=== PATIENT | female | born 1995 | race Hispanic/Latino ===

== ENCOUNTER 2023-09-15 11:51 | Emergency (ER) | payer SELFPAY ==
[2023-09-15 12:33] LABS: BASOPHILS ABSOLUTE AUTO 0.01 K/uL (0.00-0.20); BASOPHILS PERCENT AUTO 0.3 % (0.0-1.0); EOSINOPHILS ABSOLUTE AUTO 0.02 K/uL (0.00-0.45); EOSINOPHILS PERCENT AUTO 0.5 % (0.0-6.0); HEMOGLOBIN 13.7 g/dL (12.0-16.0); IMMATURE GRAN ABSOLUTE AUTO 0.01 K/uL (0.00-0.05); IMMATURE GRAN PERCENT AUTO 0.3 % (0.0-0.4); LYMPHOCYTES ABSOLUTE AUTO 1.15 K/uL (1.00-4.80); LYMPHOCYTES PERCENT AUTO 31.3 % (24.0-44.0); MEAN CORPUSCULAR HEMOGLOBIN 30.9 pg (28.0-32.0); MEAN CORPUSCULAR HGB CONC 36.1 g/dL (32.0-36.0); MEAN CORPUSCULAR VOLUME 85.6 fL (83.0-99.0); MEAN PLATELET VOLUME 9.9 fL (9.4-12.3); MONOCYTES ABSOLUTE AUTO 0.26 K/uL (0.00-0.80); MONOCYTES PERCENT AUTO 7.1 % (0.0-8.0); NEUTROPHILS ABSOLUTE AUTO 2.23 K/uL (1.80-7.70); NEUTROPHILS PERCENT AUTO 60.5 % (41.0-71.0); PLATELET COUNT,PLT 300 K/uL (150-400); RED BLOOD CELL COUNT 4.44 M/uL (4.10-5.30); WHITE BLOOD CELL COUNT,WBC 3.68 K/uL (3.9-11.3)
[2023-09-15 12:47] LABS: INR 0.96 (0.86-1.11)
[2023-09-15 13:21] LABS: APPEARANCE,URINE CLEAR; BILIRUBIN,URINE NEGATIVE (NEGATIVE); COLOR,URINE YELLOW; GLUCOSE,URINE NEGATIVE (NEGATIVE); KETONES,URINE NEGATIVE (NEGATIVE); LEUKOCYTE ESTERASE,URINE NEGATIVE (NEGATIVE); NITRITE,URINE NEGATIVE (NEGATIVE); OCCULT BLOOD,URINE NEGATIVE (NEGATIVE); PH,URINE 5.5 (5.0-8.0); PROTEIN,URINE NEGATIVE (NEGATIVE); UROBILINOGEN,URINE 0.2 EU/dL (<2.0)
[2023-09-15 13:40] LABS: BILIRUBIN TOTAL 0.5 mg/dL (0.2-1.0); CALCIUM 9.2 mg/dL (8.5-10.1); CARBON DIOXIDE,CO2 21.4 mmol/L (21.0-32.0); CREATININE 0.6 mg/dL (0.6-1.0); EST CRCL DRUG DOSING (CG) 103.28 mL/min; PROTEIN TOTAL,TP 8.2 g/dL (6.4-8.2)
== END 2023-09-15 16:36 | disposition home or self-care (01) ==
LOC: MW.ED 11:51
DX: O44.51 Low lying placenta with hemorrhage, first trimester (principal); O21.0 Mild hyperemesis gravidarum; O36.0111 Maternal care for anti-D [Rh] antibodies, first trimester, fetus 1; Z3A.13 13 weeks gestation of pregnancy
CPT/HCPCS: 36415; 36430; 76817; 76817-26; 80053; 81003; 84702; 85025; 85610; 86850; 86900; 86901; 96372; 99283; 99284; J2790

== ENCOUNTER 2023-10-05 16:09 | Emergency (ER) | payer MEDICAID, OTHER ==
[2023-10-05 17:46] LABS: CORONAVIRUS COVID-19 NAA NEGATIVE (NEGATIVE); INFLUENZA A NAA NEGATIVE (NEGATIVE); INFLUENZA B NAA NEGATIVE (NEGATIVE); RESPIRATORY SYNCYTIAL VIR NAA NEGATIVE (NEGATIVE)
[2023-10-05 17:57] LABS: APPEARANCE,URINE CLEAR; BILIRUBIN,URINE NEGATIVE (NEGATIVE); COLOR,URINE YELLOW; GLUCOSE,URINE NEGATIVE (NEGATIVE); KETONES,URINE NEGATIVE (NEGATIVE); LEUKOCYTE ESTERASE,URINE NEGATIVE (NEGATIVE); NITRITE,URINE NEGATIVE (NEGATIVE); OCCULT BLOOD,URINE TRACE-INTACT (NEGATIVE); PROTEIN,URINE NEGATIVE (NEGATIVE); UROBILINOGEN,URINE 0.2 EU/dL (<2.0)
[2023-10-05 18:11] LABS: BACTERIA,URINE FEW (NEGATIVE); EPITHELIAL CELLS,URINE RARE (NONE-FEW); RBC,URINE 0-1 (0-2/HPF); WBC,URINE 0-2 (0-5/HPF)
[2023-10-05] MEDS ORDERED: Acetaminophen 500 MG Tab PO ONE (18:27)
[2023-10-05 18:56] LABS: BASOPHILS ABSOLUTE AUTO 0.02 K/uL (0.00-0.20); BASOPHILS PERCENT AUTO 0.4 % (0.0-1.0); EOSINOPHILS ABSOLUTE AUTO 0.03 K/uL (0.00-0.45); EOSINOPHILS PERCENT AUTO 0.6 % (0.0-6.0); HEMATOCRIT 35.7 % (37.0-47.0); IMMATURE GRAN ABSOLUTE AUTO 0.01 K/uL (0.00-0.05); IMMATURE GRAN PERCENT AUTO 0.2 % (0.0-0.4); LYMPHOCYTES ABSOLUTE AUTO 1.35 K/uL (1.00-4.80); LYMPHOCYTES PERCENT AUTO 26.5 % (24.0-44.0); MEAN CORPUSCULAR HEMOGLOBIN 31.4 pg (28.0-32.0); MEAN CORPUSCULAR HGB CONC 36.4 g/dL (32.0-36.0); MEAN CORPUSCULAR VOLUME 86.2 fL (83.0-99.0); MEAN PLATELET VOLUME 9.8 fL (9.4-12.3); MONOCYTES ABSOLUTE AUTO 0.28 K/uL (0.00-0.80); MONOCYTES PERCENT AUTO 5.5 % (0.0-8.0); NEUTROPHILS PERCENT AUTO 66.8 % (41.0-71.0); PLATELET COUNT,PLT 309 K/uL (150-400); RED BLOOD CELL COUNT 4.14 M/uL (4.10-5.30); WHITE BLOOD CELL COUNT,WBC 5.09 K/uL (3.9-11.3)
[2023-10-05 20:08] LABS: A/G RATIO 0.9 (0.9-1.6); ALANINE AMINOTRANSFERASE,ALT 25 IU/L (14-63); ALBUMIN 3.5 g/dL (3.4-5.0); ALKALINE PHOSPHATASE 56 U/L (46-116); ASPARTATE AMNIOTRANSFERASE,AST 18 IU/L (15-37); BILIRUBIN TOTAL 0.4 mg/dL (0.2-1.0); BLOOD UREA NITROGEN,BUN 11 mg/dL (7.0-18.0); CARBON DIOXIDE,CO2 22.8 mmol/L (21.0-32.0); CHLORIDE,CL 101 mmol/L (98-107); CREATININE 0.7 mg/dL (0.6-1.0); ESTIMATED GFR 122 mL/min (>60); GLUCOSE RANDOM 82 mg/dL (74-106); POTASSIUM,K 3.6 mmol/L (3.5-5.1); PROTEIN TOTAL,TP 7.5 g/dL (6.4-8.2); SODIUM,NA 136 mmol/L (136-145)
== END 2023-10-05 20:30 | disposition home or self-care (01) ==
LOC: MW.ED 16:09
DX: O20.9 Hemorrhage in early pregnancy, unspecified (principal); Z20.822 Contact with and (suspected) exposure to COVID-19; Z3A.14 14 weeks gestation of pregnancy
CPT/HCPCS: 0241U; 36415; 76801; 80053; 81001; 81025; 84702; 85025; 99284; A9270; 99283

== ENCOUNTER 2024-03-21 03:57 | Inpatient (IN) | payer SELFPAY ==
[2024-03-21] MEDS ORDERED: Lactated Ringers 1,000 ML IV ONE (04:46)
[2024-03-21 06:18] LABS: APPEARANCE,URINE CLEAR; BILIRUBIN,URINE NEGATIVE (NEGATIVE); COLOR,URINE YELLOW; GLUCOSE,URINE NEGATIVE (NEGATIVE); KETONES,URINE NEGATIVE (NEGATIVE); LEUKOCYTE ESTERASE,URINE NEGATIVE (NEGATIVE); NITRITE,URINE NEGATIVE (NEGATIVE); OCCULT BLOOD,URINE NEGATIVE (NEGATIVE); PH,URINE 6.5 (5.0-8.0); PROTEIN,URINE NEGATIVE (NEGATIVE); UROBILINOGEN,URINE 0.2 EU/dL (<2.0)
[2024-03-21 06:24] LABS: BACTERIA,URINE FEW (NEGATIVE); EPITHELIAL CELLS,URINE FEW (NONE-FEW); MUCUS,URINE LIGHT (NONE-MOD); RBC,URINE 0-1 (0-2/HPF); WBC,URINE 0-1 (0-5/HPF)
[2024-03-21] MEDS ORDERED: Citric Acid/Sodium Citrate Solution 30 ML Cup PO ONE (08:40)
[2024-03-21] MEDS ORDERED: Ondansetron 4 MG/2 ML SDV IVPUSH PRN ×4 (08:40→19:21)
[2024-03-21] MEDS ORDERED: Sodium Chloride 0.9% 2.5 ML Syringe FLUSH PRN (08:40)
[2024-03-21] MEDS ORDERED: Sodium Chloride 0.9% 10 ML Syringe FLUSH PRN (08:40)
[2024-03-21] MEDS ORDERED: Sodium Chloride 0.9% 20 ML SDV IV PRN (08:40)
[2024-03-21] MEDS ORDERED: Oxytocin/0.9 % Sodium Chloride 30 UNIT/500 ML BAG IV SCH ×2 (08:45→19:30)
[2024-03-21] MEDS: Butorphanol 2 MG/ML SDV IVPUSH ONE (09:15)
[2024-03-21] MEDS: Lactated Ringers 1,000 ML IV SCH (09:19)
[2024-03-21 09:44] LABS: HEMATOCRIT 33.8 % (37.0-47.0); HEMOGLOBIN 11.8 g/dL (12.0-16.0); MEAN CORPUSCULAR HEMOGLOBIN 30.5 pg (28.0-32.0); MEAN CORPUSCULAR HGB CONC 34.9 g/dL (32.0-36.0); MEAN CORPUSCULAR VOLUME 87.3 fL (83.0-99.0); MEAN PLATELET VOLUME 10.6 fL (9.4-12.3); PLATELET COUNT,PLT 284 K/uL (150-400); RED BLOOD CELL COUNT 3.87 M/uL (4.10-5.30)
[2024-03-21] MEDS ORDERED: ceFAZolin 1 GM Vial IM ONE (11:08)
[2024-03-21] MEDS ORDERED: ceFAZolin 1 GM in Sodium Chloride 0.9% 50 ML IV ONE (11:15)
[2024-03-21] MEDS ORDERED: EPINEPHrine 1 MG/1 ML Amp ONE (13:10)
[2024-03-21] MEDS ORDERED: Morphine PF 10 MG/10 ML SDV ONE (13:10)
[2024-03-21] MEDS ORDERED: fentaNYL 100 MCG/2 ML SDV ONE (13:10)
[2024-03-21] MEDS ORDERED: Ketorolac 30 MG/ML SDV ONE (13:10)
[2024-03-21] MEDS ORDERED: Oxytocin 10 Units/1 ML SDV ONE (13:10)
[2024-03-21] MEDS ORDERED: Ropivacaine 0.5% 5 MG/ML 30 ML SDV ONE (13:10)
[2024-03-21] MEDS ORDERED: Ondansetron 4 MG/2 ML SDV ONE (13:10)
[2024-03-21] MEDS ORDERED: ceFAZolin 1 GM Vial ONE (13:10)
[2024-03-21] MEDS ORDERED: Bupivacaine 0.25% 30 ML SDV ONE (13:10)
[2024-03-21] MEDS ORDERED: Phenylephrine HCl In 0.9% NaCl 1 MG/10 ML Syringe ONE ×3 (13:24→14:00)
[2024-03-21] MEDS ORDERED: Tranexamic Acid 1,000 MG/10 ML Vial ONE (14:10)
[2024-03-21] MEDS ORDERED: ePHEDrine 50 MG/ML SDV ONE (14:16)
[2024-03-21] MEDS ORDERED: HYDROmorphone 2 MG/ML Syringe IVPUSH PRN (15:13)
[2024-03-21] MEDS ORDERED: diphenhydrAMINE 50 MG/ML SDV IVPUSH PRN ×2 (15:13→19:21)
[2024-03-21] MEDS ORDERED: fentaNYL 100 MCG/2 ML SDV IVPUSH PRN ×2 (15:13)
[2024-03-21] MEDS ORDERED: Morphine 2 MG/ML SYRINGE IVPUSH PRN (15:13)
[2024-03-21] MEDS ORDERED: ePHEDrine 50 MG/ML SDV IVPUSH PRN (15:13)
[2024-03-21] MEDS ORDERED: Acetaminophen/oxyCODONE 325-5 MG Tab PO PRN (15:13)
[2024-03-21] MEDS ORDERED: Albuterol 0.083% 2.5 MG/3 ML Neb Soln NEB PRN (15:13)
[2024-03-21] MEDS ORDERED: Naloxone 0.4 MG/ML SDV IVPUSH PRN (15:13)
[2024-03-21] MEDS: Metoclopramide 10 MG/2 ML SDV IVPUSH PRN (16:01)
[2024-03-21] MEDS: Acetaminophen 1,000 MG in Premix Bag 1 BAG IV SCH (16:03)
[2024-03-21] MEDS: droPERidol 5 MG/2 ML SDV IVPUSH PRN (16:58)
[2024-03-21] MEDS ORDERED: Lanolin 100% Cream 7 GM Tube TOP PRN (19:21)
[2024-03-21] MEDS ORDERED: Oxytocin 10 Units/1 ML SDV IM PRN (19:21)
[2024-03-21] MEDS ORDERED: Misoprostol 200 MCG Tab RECTAL PRN (19:21)
[2024-03-21] MEDS ORDERED: Bisacodyl 10 MG Supp RECTAL PRN (19:21)
[2024-03-21] MEDS ORDERED: Methylergonovine 0.2 MG/1 ML Amp IM PRN (19:21)
[2024-03-21] MEDS ORDERED: Lactated Ringers 1,000 ML IV SCH (19:30)
[2024-03-21] MEDS: Docusate Sodium 100 MG Cap PO SCH (21:43)
[2024-03-21] MEDS: droPERidol 5 MG/2 ML SDV IVPUSH ONE (22:09)
[2024-03-21] MEDS: Ketorolac 30 MG/ML SDV IVPUSH SCH (23:43)
[2024-03-22 05:56] LABS: HEMATOCRIT 27.7 % (37.0-47.0); HEMOGLOBIN 9.4 g/dL (12.0-16.0)
[2024-03-23] MEDS: Acetaminophen/oxyCODONE 325-5 MG Tab PO PRN ×2 (04:52→09:39)
[2024-03-23] MEDS ORDERED: Ibuprofen 800 MG Tab PO PRN (05:01)
[2024-03-23] MEDS: Sodium Ferric Gluconate Cmplex 125 MG in Sodium Chloride 0.9% 100 ML IV SCH (14:48)
== END 2024-03-23 19:09 | disposition home or self-care (01) | DRG 788 ==
LOC: MW.OBCHECK 03:57 → MW.OB 03:58 → MW.OBCHECK 09:42 → MW.OB 09:43
PROVIDERS: ADMIT Obstetrics & Gynecology Obstetrics; ATTEND Obstetrics & Gynecology Obstetrics
PROC: 10D00Z1 Extraction of Products of Conception, Low, Open Approach (ICD-10-PCS; principal; 2024-03-21 13:30)
PROC: 3E0334Z Introduction of Serum, Toxoid and Vaccine into Peripheral Vein, Percutaneous Approach (ICD-10-PCS; 2024-03-23)
DX: O44.43 Low lying placenta NOS or without hemorrhage, third trimester (principal); Z37.0 Single live birth; Z3A.38 38 weeks gestation of pregnancy; O34.211 Maternal care for low transverse scar from previous cesarean delivery; O26.893 Other specified pregnancy related conditions, third trimester; Z67.11 Type A blood, Rh negative
CPT/HCPCS: 36415; 59025; 81001; 85014; 85018; 85027; 85460; 86592; 86850; 86900; 86901; A9270-GY; J0131; J0171; J0595; J0665; J0690; J1100; J1790; J1885; J2274; J2371; J2405; J2590; J2765; J2790; J2795; J2916; J3010; J3490; J7120

== ENCOUNTER 2024-07-24 18:06 | Emergency (ER) | payer SELFPAY ==
[2024-07-24 18:58] LABS: BASOPHILS ABSOLUTE AUTO 0.02 K/uL (0.00-0.20); BASOPHILS PERCENT AUTO 0.2 % (0.0-1.0); HEMATOCRIT 38.2 % (37.0-47.0); IMMATURE GRAN ABSOLUTE AUTO 0.01 K/uL (0.00-0.05); IMMATURE GRAN PERCENT AUTO 0.1 % (0.0-0.4); LYMPHOCYTES ABSOLUTE AUTO 1.11 K/uL (1.00-4.80); LYMPHOCYTES PERCENT AUTO 12.5 % (24.0-44.0); MEAN CORPUSCULAR VOLUME 85.1 fL (83.0-99.0); MEAN PLATELET VOLUME 10.3 fL (9.4-12.3); MONOCYTES PERCENT AUTO 5.6 % (0.0-8.0); NEUTROPHILS ABSOLUTE AUTO 7.22 K/uL (1.80-7.70); NEUTROPHILS PERCENT AUTO 81.6 % (41.0-71.0); PLATELET COUNT,PLT 287 K/uL (150-400); RED BLOOD CELL COUNT 4.49 M/uL (4.10-5.30); WHITE BLOOD CELL COUNT,WBC 8.86 K/uL (3.9-11.3)
[2024-07-24] MEDS: Bacitracin Oint 1 GM U/D Packet TOP ONE (18:58)
[2024-07-24] MEDS: traMADol 50 MG Tab PO ONE (18:58)
[2024-07-24 19:18] LABS: BILIRUBIN TOTAL 0.7 mg/dL (0.2-1.0); CALCIUM 9.6 mg/dL (8.5-10.1); CARBON DIOXIDE,CO2 24.2 mmol/L (21.0-32.0); CREATININE 0.9 mg/dL (0.6-1.0); EST CRCL DRUG DOSING (CG) 70.85 mL/min; POTASSIUM,K 3.5 mmol/L (3.5-5.1); PROTEIN TOTAL,TP 7.9 g/dL (6.4-8.2)
[2024-07-24] MEDS: Iopamidol 755 MG/ML 500 ML Multipack Bottle IVPUSH STA (20:12)
== END 2024-07-24 21:07 | disposition home or self-care (01) ==
LOC: MW.ED 18:06
DX: S50.12XA Contusion of left forearm, initial encounter (principal); S70.12XA Contusion of left thigh, initial encounter; S00.31XA Abrasion of nose, initial encounter; S00.81XA Abrasion of other part of head, initial encounter; Z75.8 Other problems related to medical facilities and other health care; Y04.2XXA Assault by strike against or bumped into by another person, initial encounter
CPT/HCPCS: 36415; 70450; 70496; 70498; 72125; 73090; 73552; 80053; 84703; 85025; 99284; A9270; Q9967

== ENCOUNTER 2024-10-13 17:20 | Emergency (ER) | payer SELFPAY ==
[2024-10-13 17:57] LABS: APPEARANCE,URINE CLOUDY; BILIRUBIN,URINE NEGATIVE (NEGATIVE); COLOR,URINE YELLOW; GLUCOSE,URINE NEGATIVE (NEGATIVE); KETONES,URINE NEGATIVE (NEGATIVE); LEUKOCYTE ESTERASE,URINE MODERATE (NEGATIVE); NITRITE,URINE NEGATIVE (NEGATIVE); OCCULT BLOOD,URINE MODERATE (NEGATIVE); PROTEIN,URINE TRACE mg/dL (NEGATIVE); UROBILINOGEN,URINE 0.2 EU/dL (<2.0)
[2024-10-13 18:04] LABS: EPITHELIAL CELLS,URINE OCCASIONAL (NONE-FEW); WBC,URINE 30-35 (0-5/HPF)
[2024-10-13 18:05] LABS: AMORPHOUS SEDIMENT,URINE MODERATE (NEGATIVE); BACTERIA,URINE 4+ (NEGATIVE)
== END 2024-10-13 18:17 | disposition home or self-care (01) ==
LOC: MW.ED 17:20
DX: N39.0 Urinary tract infection, site not specified (principal); Z75.8 Other problems related to medical facilities and other health care
CPT/HCPCS: 81001; 81025; 87086; 87088; 87186; 99283